=== PATIENT | female | born 1965 | race Two or more races ===

== ENCOUNTER 2018-08-16 10:13 | Outpatient (CLI) | payer OTHER ==
[~2018-08-16 10:13] MED LIST: ARMOUR THYROID60 M1; CARDIZEM CD120 MG PO; DICLOFENAC SODI50 MG PO; ENALAPRIL MALEAT5 MG; NORFLEX100MG PO; PROGESTERO50 MG/1 ML
== END 2018-08-16 10:23 | disposition home or self-care (01) ==
LOC: RAD 501 10:13
DX: M25.562 Pain in left knee (principal)

== ENCOUNTER 2021-12-04 09:00 | Outpatient (CLI) | payer OTHER | END 2021-12-04 10:00 | disposition home or self-care (01) | LOC: LAB 09:00 | PROVIDERS: ATTEND General Practice | DX: U07.1 COVID-19 (principal) ==